=== PATIENT | male | born 1930 | race Caucasian/White ===

== ENCOUNTER 2016-11-23 16:36 | Emergency (ER) | payer BC ==
[2016-11-23 15:56] LABS: BASOPHILS 0.1 %; BASOPHILS ABSOLUTE 0.01 10/3/uL (0.0-0.16); EOSINOPHILS 0 %; ER CBC TAT 0 Hrs 02 Mins; HEMATOCRIT 42.4 % (40.0-51.0); IMMATURE GRANULOCYTES 0.2 %; IMMATURE GRANULOCYTES ABSOLUTE 0.03 10/3/uL (0.0-0.11); LYMPHOCYTES 6.4 %; LYMPHOCYTES ABSOLUTE 0.79 10/3/uL (0.67-4.30); MEAN PLATELET VOLUME 9.6 fL (9.2-13.0); MONOCYTES 1.6 %; NEUTROPHILS 91.7 %; NEUTROPHILS ABSOLUTE 11.32 10/3/uL (2.02-8.40); PLATELET COUNT 148 10/3/uL (150-400); RBC DISTRIBUTION WIDTH 13.7 % (12.0-16.0); RED CELL COUNT 4.66 10/6/uL (4.7-6.1); WHITE BLOOD CELLS 12.4 10/3/uL (4.5-10.5)
[2016-11-23 15:57] LABS: MANUAL DIFF NO %
[2016-11-23 16:05] LABS: INTERNATIONAL NORMAL RATI 1.2 UNITS (-); PARTIAL THROMBO TIME 33.9 SEC (22.5-37.2); PROTIME (NOT ORD) 14.6 SEC (12.0-14.5)
[2016-11-23 16:13] LABS: A/G RATIO 0.8 (0.7-1.9); CHLORIDE, SERUM 101 MMOL/L (96-112); CO2 (CARBON DIOXIDE) 33 MMOL/L (24-34); CREATININE 0.72 MG/DL (0.70-1.30); GFR AFRICAN AMERICAN 99 ML/MIN (>=60); GFR NON AFRICAN AMERICAN 86 ML/MIN (>=60); GLOBULIN 3.7 G/DL (2.5-4.1); GLUCOSE, SERUM 151 MG/DL (60-99); POTASSIUM, SERUM 4.4 MMOL/L (3.5-5.3); SGOT(AST) 23 U/L (5-40); SGPT(ALT) 50 U/L (5-65); SODIUM, SERUM 141 MMOL/L (135-148); TOTAL PROTEIN 6.7 G/DL (6.0-8.5); TROPONIN I <0.02 NG/ML (<0.05)
[2016-11-23 16:14] LABS: ALKALINE PHOSPHATASE 107 U/L (45-117); BUN (BLOOD UREA NITROGEN) 13 MG/DL (6-23); TOTAL BILIRUBIN 0.5 MG/DL (0-1.2)
[~2016-11-23 16:36] MED LIST: ADVAIR INH; ALTA5 PO; ASAB PO; COMBIVENT INH; COMBIVENT RESPIM4 GM INH; COREG25 PO; DUONEB INH; ELIQUIS 5 MG TAB5 MG PO; FERROUS SULFATE; FLAG500TAB PO; FLOMAX4 PO; FLONASE NAS; GI COCKTAIL 4040 ML PO/LIQ; HALF81 PO; HCTZ25B PO; HYDROCHLOROT25 MG PO; IMDUR30 PO; INSPRA 25 MG TA25 MG OR; INSPRA25 PO; IRON325 MG PO; IVVIBRA PO; LANTUS SC; LIPITOR40 PO; LIPITOR80 MG PO; LISINOPRIL40 MG PO; LOP25 PO; MIRALAXPKT PO; NITROSTAT0.4 MG SL; NORV10 PO; NTG150 SL; P20 PO; PRILO PO; PRIN2.5 PO; PRIN20 PO; PRIN5 PO; PROSCAR5 PO; PROTONIX PO; PROVENTSOL INH; SPIRIVA RESPIMAT INH; TOPXL100 PO; VYTORIN 10/40 T1 TAB PO
== END 2016-11-23 18:00 | disposition home or self-care (01) ==
LOC: ER 16:36
PROVIDERS: Emergency Medicine
DX: J44.1 Chronic obstructive pulmonary disease with (acute) exacerbation (principal); I10 Essential (primary) hypertension; I25.2 Old myocardial infarction; I48.91 Unspecified atrial fibrillation; F17.200 Nicotine dependence, unspecified, uncomplicated; Z79.82 Long term (current) use of aspirin; Z79.899 Other long term (current) drug therapy
CPT/HCPCS: 71010; 80053; 83880; 84484; 85025; 85610; 85730; 93005; 94640; 96374; 99285; A9270-GY; J2930